=== PATIENT | female | born 1995 | race Caucasian/White ===

== ENCOUNTER 2022-10-19 08:10 | Emergency (ER) | payer MEDICARE, MEDICAID, SELFPAY ==
[2022-10-19 08:29] VITALS: BP 144/99; PULSE 96; RESP 18; TEMP 36.7; O2SAT 100
--- NOTE | 2022-10-19 08:57 | ED.URI ---
HPI - URI/Sore Throat General Chief Complaint: Upper Respiratory Infection Stated Complaint: Cough,Sore Throat Time Seen by Provider: 10/19/22 08:35 Source: patient, family (Mother) and RN notes reviewed Mode of arrival: ambulatory Limitations: no limitations History of Present Illness HPI Narrative: Patient presents today complaining of 4 day history of cough, rhinorrhea, congestion. Denies fever, shortness of breath, or any additional symptoms. Eating and drinking normally. Mother presents with similar symptoms. She has been taking Zyrtec with some relief. History of seasonal allergies, but states these symptoms are more severe. History of ear tubes x 12 and tympanic membrane reconstruction. Related Data Home Medications Medication Instructions Recorded Confirmed drospirenone (contraceptive) 4 mg 4 mg PO DAILY 10/19/22 10/19/22 (28) tablet (Slynd) folic acid 1 mg tablet 1 mg PO DAILY 10/19/22 10/19/22 lamotrigine 150 mg tablet 300 mg PO BID 10/19/22 10/19/22 omeprazole 40 mg capsule,delayed 40 mg PO DAILY 10/19/22 10/19/22 release Allergies Allergy/AdvReac Type Severity Reaction Status Date / Time Penicillins AdvReac Mild Hives Verified 10/19/22 08:39 Review of Systems Review of Systems: CONSTITUTIONAL: Denies body aches, fever, chills, or sweats. EYES: Denies visual changes, redness, or discharge. ENT: Denies sore throat, or otalgia.+ rhinorrhea, congestion CARDIOVASCULAR: Denies chest pain, palpitations, or edema. RESPIRATORY: Denies dyspnea.+ cough GASTROINTESTINAL: Denies abdominal pain, nausea, vomiting, or diarrhea. GENITOURINARY: Denies dysuria or hematuria. SKIN: Denies rash, itching, or wounds. MUSCULOSKELETAL: Denies back pain, joint pain, or myalgia. NEUROLOGIC: Denies headache, numbness, tingling, or weakness. PSYCH: Denies depression or anxiety. [facility] Surgical History Surgical History (Updated 10/19/22 @ 08:58 by Aretha Ceja, REBRANDER, ) History of placement of ear tubes Comments At time of signature, I have reviewed and agree with nursing past medical, surgical, social and family history unless otherwise noted. Please see nursing chart for further information. There is no relevant family history pertinent to the presenting complaint Exam Narrative: GENERAL: Mildly ill-appearing, well-nourished, and in no acute distress. HEAD: Normocephalic, atraumatic. EYES: EOMI. No redness or drainage. Conjunctivae normal. ENT: Mucous membranes pink and moist. Nares congested with rhinorrhea. TMs normal bilaterally. Throat normal. Uvula midline. NECK: Normal AROM. Supple. No lymphadenopathy. CHEST: No respiratory distress. Clear to auscultation. HEART: Regular rate and rhythm. No murmur appreciated. EXTREMITIES: Normal range of motion. No edema. SKIN: Warm, dry, no rash. Capillary refill normal. Normal skin turgor. NEURO: No focal deficits. Alert and oriented x3. Gait steady. PSYCH: Normal affect. No signs of depression or anxiety. Course Course Level of Care: Express Care Visit Vital Signs Vital signs: Vital Signs Temperature 98.0 F 10/19/22 08:29 Pulse Rate 96 10/19/22 08:29 Respiratory Rate 18 10/19/22 08:29 Blood Pressure 144/99 H 10/19/22 08:29 Pulse Oximetry 100 10/19/22 08:29 Oxygen Delivery Room Air 10/19/22 08:29 Temperature 98.0 F 10/19/22 08:29 Pulse Rate 96 10/19/22 08:29 Respiratory Rate 18 10/19/22 08:29 Blood Pressure 144/99 H 10/19/22 08:29 Pulse Oximetry 100 10/19/22 08:29 Oxygen Delivery Room Air 10/19/22 08:29 Reviewed. Pt has been instructed to follow up with her PCP regarding her elevated blood pressure today. MDM - URI/Sore Throat MDM Narrative Medical decision making narrative: Symptoms consistent with viral URI. No prescription medications indicated at this time. Anticipatory guidance given. Differential Diagnosis Differential diagnosis: Likely upper respiratory infection, sinusitis, viral infectio
== END 2022-10-19 09:02 | disposition home or self-care (01) ==
PROVIDERS: Emergency Provider Nurse Practitioner; PCP Family Medicine
DX: J06.9 Acute upper respiratory infection, unspecified (principal)
CPT/HCPCS: 99202; G0463

== ENCOUNTER 2022-11-04 08:01 | Emergency (ER) | payer MEDICARE, MEDICAID, SELFPAY ==
--- NOTE | 2022-11-04 08:18 | ED.URI ---
HPI - URI/Sore Throat General Chief Complaint: Upper Respiratory Infection Stated Complaint: congestion Time Seen by Provider: 11/04/22 08:24 Source: patient and RN notes reviewed Mode of arrival: ambulatory Limitations: no limitations History of Present Illness HPI Narrative: 27-year-old female with hx seizures and seasonal allergies presented for complaint of shortness of breath, onset yesterday. She states she was feeling short of breath while walking around at her job. Also reports nonproductive cough. Mother states the employer has not turned on the air conditioning. When she arrived home early from work she used the nebulizer machine, did chest percussion therapy and cool mist humidifier. Patient has been taking Zyrtec for several weeks. Mother states she thought she heard wheezing yesterday. Currently denies chest pain, palpitations, shortness of breath, nausea, vomiting, fevers or chills. MD elicited complaint: cough Related Data Home Medications Medication Instructions Recorded Confirmed drospirenone (contraceptive) 4 mg 4 mg PO DAILY 10/19/22 11/04/22 (28) tablet (Slynd) folic acid 1 mg tablet 1 mg PO DAILY 10/19/22 11/04/22 lamotrigine 150 mg tablet 300 mg PO BID 10/19/22 11/04/22 omeprazole 40 mg capsule,delayed 40 mg PO DAILY 10/19/22 11/04/22 release Allergies Allergy/AdvReac Type Severity Reaction Status Date / Time Penicillins AdvReac Mild Hives Verified 11/04/22 08:04 Review of Systems Review of Systems: CONSTITUTIONAL: Denies malaise, chills, sweats, fever EYES: Denies visual changes, redness, or discharge ENT: Reports rhinorrhea, congestion, denies sinus pain, otalgia, sore throat CARDIOVASCULAR: Denies chest pain, palpitations, edema RESPIRATORY: Reports cough, post nasal drainage. Denies dyspnea GASTROINTESTINAL: Denies abdominal pain, nausea, vomiting, diarrhea SKIN: Denies rash or itching MUSCULOSKELETAL: Denies myalgia NEUROLOGIC: Denies headache PMFSH Past Medical History Medical History Seizure Surgical History Surgical History History of placement of ear tubes Exam Narrative: GENERAL: well-appearing, nontoxic no acute distress. HEAD: Normocephalic EYES: PERRLA, conjunctivae clear ENT: Mucous membranes moist. TM pearly drew with scarring and normal light reflex bilaterally; no tragal tenderness. Oropharynx not erythematous NECK: Supple. No lymphadenopathy CHEST: Right lower lobe faint wheezing. No respiratory distress, speaks in full sentences. HEART: Slightly Tachycardic and regular rhythm. No murmur heard. SKIN: Warm, dry, no rash. NEURO: Alert and oriented x3. PSYCH: Normal mood and affect Course Course Emergency Course: Patient is aware of diagnosis, understands and agrees to treatment plan. Anticipatory guidance given. Patient agrees to follow-up as directed and is aware of reasons to seek care at the emergency department. Portions of this record may have been created with voice recognition software Level of Care: Express Care Visit Vital Signs Vital signs: reviewed MDM - URI/Sore Throat MDM Narrative Medical decision making narrative: Discussed physical exam findings. Rx steroid. Elevated bp rechecked, Advised close f/u with pcp, supportive measures and signs/symptoms to go to the ER. Pt is appropriate for outpt treatment and f/u. Differential Diagnosis Differential diagnosis: Likely upper respiratory infection, sinusitis, viral infection and bronchitis Discharge Plan Discharge Clinical Impression: Bronchitis Patient Disposition: Home, Self-Care Condition: Stable Instructions: Antibiotic Form, Acute Bronchitis (ED) Additional Instructions: Your blood pressure reading was elevated (above 120/80) please follow-up with your primary care provider for further evaluation and management. If you develop worsening Blood P
[2022-11-04 08:24] VITALS: BP 144/105; PULSE 105; RESP 16; TEMP 36.8; O2SAT 98
== END 2022-11-04 08:46 | disposition home or self-care (01) ==
PROVIDERS: Emergency Provider Nurse Practitioner Family; PCP Family Medicine
DX: J40 Bronchitis, not specified as acute or chronic (principal); G40.909 Epilepsy, unspecified, not intractable, without status epilepticus
CPT/HCPCS: 99213; G0463

== ENCOUNTER 2022-12-01 12:52 | Emergency (ER) | payer MEDICARE, MEDICAID, SELFPAY ==
[2022-12-01 13:08] VITALS: BP 145/107; PULSE 73; RESP 18; TEMP 37.1; O2SAT 100
--- NOTE | 2022-12-01 13:34 | ED.BACK ---
HPI - Back Pain/Injury General Chief Complaint: Back Pain/Injury Stated Complaint: . Source: patient Mode of arrival: ambulatory Limitations: no limitations History of Present Illness HPI Narrative: 27-year-old female presents to [facility] with complaints of pain to her left lower back for the past week. Patient reports that she did left heavy items at her job 1 week ago. Patient denies urinary symptoms. Patient denies fever, body aches, chills, nausea vomiting or diarrhea. Patient reports that the pain improves when she rests. Patient reports the pain worsens with movement or bending over. Patient has been taking [id number] Tylenol with minimal relief. MD elicited complaint: back pain Onset (ago): week(s) (1) Location: left lower back Radiation: none Exacerbating factors: movement Relieving factors: other (rest) Context: while lifting Associated symptoms: denies other symptoms Treatments prior to arrival: acetaminophen Related Data Home Medications Medication Instructions Recorded Confirmed drospirenone (contraceptive) 4 mg 4 mg PO DAILY 10/19/22 12/01/22 (28) tablet (Slynd) folic acid 1 mg tablet 1 mg PO DAILY 10/19/22 12/01/22 lamotrigine 150 mg tablet 300 mg PO BID 10/19/22 12/01/22 omeprazole 40 mg capsule,delayed 40 mg PO DAILY 10/19/22 12/01/22 release Allergies Allergy/AdvReac Type Severity Reaction Status Date / Time Penicillins AdvReac Mild Hives Verified 12/01/22 13:12 Review of Systems Constitutional: Constitutional: Denies chills, Denies fatigue, Denies fever(s) and Denies weakness ENT: Denies vertigo, Denies dizziness, Denies epistaxis and Denies nasal congestion Cardiovascular: Cardiovascular: Denies chest pain Respiratory: Respiratory: Denies chest congestion, Denies cough, Denies dyspnea and Denies wheezing Gastrointestinal: Gastrointestinal: Denies diarrhea, Denies nausea and Denies vomiting Musculoskeletal: Comments: Left lower back pain Integumentary/Breasts: Skin/Breast: Denies pruritus, Denies erythema and Denies rash Neurologic: Denies dizziness, Denies syncope and Denies headache(s) PMFSH Past Medical History Medical History Seizure Surgical History Surgical History History of placement of ear tubes Comments At time of signature, I agree with nursing past medical, surgical, social and family history. There is no relevant family history pertinent to the presenting complaint. Exam Const: Nutritional Appearance: well nourished Orientation/consciousness: patient oriented x3 Limitations: no limitations HENMT: Head: normal to inspection Eyes: Conjunctivae: conjunctivae normal Resp: Effort & Inspection: normal respiratory effort and not labored Auscultation: clear to auscultation bilaterally, no crackles, no rales, no rhonchi and no wheezes Cardio: Rate: regular rate Rhythm: regular rhythm Heart sounds: no murmurs GI: Inspection: non-distended : General: Yes bladder normal to palpation Back/Spine/Pelvis: Back: no CVA tenderness Other: Mild pain to left lower back upon palpation. There is no rash, swelling, erythema, bruising or open wounds noted. Normal range of motion to back noted Skin: General skin exam: normal color Rashes: no rashes Wounds: no wounds Neuro: General: patient oriented x3 Speech: normal speech Gait exam (Neuro): Normal gait present Extrem: General: normal to inspection Psych: Affect: normal affect Attitude: cooperative Course Course Level of Care: Express Care Visit Vital Signs Vital signs: Vital Signs Temperature 37.1 C 12/01/22 13:08 Pulse Rate 73 12/01/22 13:08 Respiratory Rate 18 12/01/22 13:08 Blood Pressure 145/107 H 12/01/22 13:08 Pulse Oximetry 100 12/01/22 13:08 Oxygen Delivery Room Air 12/01/22 13:08 Temperature 37.1 C 12/01/22 13:08 Pulse Rate 7
== END 2022-12-01 13:43 | disposition home or self-care (01) ==
PROVIDERS: Emergency Provider Nurse Practitioner Family; PCP Family Medicine
DX: M54.50 Low back pain, unspecified (principal); G40.909 Epilepsy, unspecified, not intractable, without status epilepticus
CPT/HCPCS: 81003; 99213; G0463

== ENCOUNTER 2025-02-28 09:23 | Emergency (ER) | payer MEDICARE, MEDICAID, SELFPAY ==
--- OUTSIDE RECORDS SUMMARY | 2015-03-21 09:45 | XMS_ITS | Continuity of Care Document ---
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 Name Role Phone Mejia CHANGE ROOM ATTENDANT, Aretha Unavailable Unavailable Allergies, Adverse Reactions, Alerts Substance Reaction Status Criticality Penicillins Active No Information Medications Medication Instructions Dosage Effective Dates (start - stop) Status Comments Lamictal 100 mg Tab by mouth 1 at 4pm and 1 at bedtime - Active folic acid 1 mg Tab take 1 tablet (1MG) by oral route every day as needed 1 MG - Active MULTIVITAMINS (unknown strength) take 1 tablet by oral route every day with food Not Available - Active Proventil HFA 90 mcg/actuation aerosol inhaler inhale 2 puff by inhalation route 15 mins prior to singing /excercise - No Longer Active Procedures Procedure Date PREV VISIT, EST, AGE 18-39 SPECIMEN HANDLING OFFICE/OUTPATIENT VISIT, EST URINALYSIS NONAUTO W/O SCOPE Nurse Only FLU VACCINE NO PRESERV 3 & > IMMUNIZATION ADMIN OFFICE/OUTPATIENT VISIT, EST PREV VISIT, EST, AGE 12-17 OFFICE/OUTPATIENT VISIT, EST OFFICE/OUTPATIENT VISIT, EST Nurse Only FLU VAC NO PRSV 4 LEILA 3 YRS+ IMMUNIZATION ADMIN IMMUNIZATION ADMIN, EACH ADD OFFICE/OUTPATIENT VISIT, EST STREP A ASSAY W/OPTIC OFFICE/OUTPATIENT VISIT, EST OFFICE/OUTPATIENT VISIT, EST URINALYSIS NONAUTO W/O SCOPE OFFICE/OUTPATIENT VISIT, EST OFFICE/OUTPATIENT VISIT, EST THER/PROPH/DIAG INJ, SC/IM FLU VACCINE NO PRESERV 3 & > DESTRUCT B9 LESION, -14 PREV VISIT, EST, AGE 12-17 HEP A VACC, PED/ADOL, 2 DOSE Nurse Only FLU VACCINE, 3 YRS & >, IM PREV VISIT, EST, AGE 12-17 HEP A VACC, PED/ADOL, 2 DOSE Nurse Only FLU VACCINE, 3 YRS & >, IM Advance Directives Directive Yes / No Effective Date File Name No Information Encounters Encounter Description Practice Location Reason(s) For Visit Diagnoses Date Provider Providers Copied on Encounter PREV VISIT, EST, AGE 18-39 [facility], [address] [place] [address], [id number], tel:[phone] [facility] 19 yr [facility] (chief complaint) ROUTIN CHILD HEALTH EXAM 5 Roberto Carias. [address] [place] [address], [id number] , [place]. tel:[phone] Referring Provider: Aretha Liu, [address] [place] [address], [id number] . tel:[phone] [facility], [address] [place] [address], [id number], tel:[phone] [facility] No Information 4 Nadira Christensen. [address] [place] [address], [id number]. tel:[phone] Referring Provider: Amparo Waddell, [address] [place] [address], [id number]. tel:[phone] OFFICE/OUTPA TIENT VISIT, EST [facility], [address] [place] [address], [id number], tel:[phone] [facility] possible uti (chief complaint) DysuriaDysmeno rrhea Nov-2 5 4 Nadira Christensen. [address] [place] [address], [id number]. tel:[phone] Referring Provider: Amparo Waddell, [address] [place] [address], [id number]. tel:[phone] [facility], [address] [place] [address], [id number], tel:[phone] [facility] immunization-p eds (chief complaint) No Information Mar- 4 Roberto Carias. [address] [place] [address], [id number] , [place]. tel:[phone] Referring Provider: Aretha Liu, [address] [place] [address], [id number] . tel:[phone] OFFICE/OUTPA TIENT VISIT, EST [facility], [address] [place] [address], [id number], tel:[phone] [facility] er/hospital follow-up (chief complaint) Urinary Tract Infection Silver-3 0-201 4 Anthony Olive. [address] [place] [address], [id number] , [place]. tel:[phone] PREV VISIT, EST, AGE 12-17 [facility], [address] [place] [address], [id number], [place] tel:[phone] [facility] Well child - 17 Years (chief complaint) Routine infant or child health checkEXERCISE INDUCED BRONCHOSPASM Apr-2 2-201 4 Anthony Olive. [address] [place] [address], [id number] , [place]. tel:[phone] OFFICE/OUTPA TIENT VISIT, [facility], [address] [place] [address], [id number], tel:[phone] [facility] back pain (chief complaint)coug h (chief complaint) Allergic rhinitis 3 Mejiaruben Calderonn. [address] [place] [address], [address] [place] [address] , [place]. tel:[phone] [facility], [address] [place] [address], [address] [place] [address], [place] tel:[phone] [facility] immunization-p eds (chief complaint) No Information 3 Sathya Reyna. [address] [place] [address], [facility], . tel:[phone] OFFICE/OUTPA TIENT VISIT, [facility], [address] [place] [address], [address] [place] [address], tel:[phone] [facility] sore throat (chief complaint) Streptococcal sore throat 2 3 Odukoya Bobbi. [address] [place] [address], [facility]. tel:[phone] Referring Provider: Bobbi Trimble, [address] [place] [address], [facility]. tel:[phone] OFFICE/OUTPA TIENT VISIT, [facility], [address] [place] [address], [address] [place] [address], tel:[phone] [facility] 2 week F/U constipation (chief complaint) DysuriaViral warts, unspecified 3 Odukoya Bobbi. [address] [place] [address], [facility]. tel:[phone] Referring Provider: Bobbi Trimble, [address] [place] [address], [facility]. tel:[phone] OFFICE/OUTPA TIENT VISIT, [facility], [address] [place] [address], [id number], tel:[phone] [facility] urinary problems (chief complaint) DysuriaUnspeci fied disorder of intestine Aug-0 3 Odukoya Bobbi. [address] [place] [address], [facility]. tel:[phone] Referring Provider: Bobbi Trimble, [address] [place] [address], [facility]. tel:[phone] OFFICE/OUTPA TIENT VISIT, EST [facility], [address] [place] [address], [id number], tel:[phone] [facility] recheck (R) wart/foot (chief complaint) Viral warts, unspecified 2 Odukoya Bobbi. [address] [place] [address], [facility]. tel:[phone] Referring Provider: Bobbi Trimble, [address] [place] [address], [facility]. tel:[phone] OFFICE/OUTPA TIENT VISIT, EST [facility], [address] [place] [address], [id number], tel:[phone] [facility] Knot on (R) foot (chief complaint) Viral warts, unspecifiedInf luenza Vaccine Feb- 2 Odukoya Bobbi. [address] [place] [address], [facility]. tel:[phone] Referring Provider: Bobbi Trimble, [address] [place] [address], [facility]. tel:[phone] PREV VISIT, EST, AGE 12-17 [facility], [address] [place] [address], [id number], [place] tel:[phone] [facility] Well child - 15 Years (chief complaint) Routine or child health checkUnspecifi ed mental retardationSei zuresOther specific developmental learning difficultiesPr oblems with hearing 2 Atilio Martines. [address] [place] [address], [facility]. tel:[phone] Referring Provider: Bobbi Trimble, [address] [place] [address], [facility]. tel:[phone] [facility], [address] [place] [address], [address] [place] [address], tel:[phone] [facility] No Information 2 Willem Mistry. [address] [place] [address], [address] [place] [address]. [phone] [facility], [address] [place] [address], [address] [place] [address], tel:[phone] [facility] immunizations (chief complaint) No Information 1 Sathya Reyna. [address] [place] [address], [facility], . [phone] Referring Provider: Maribell Jackson, [address] [place] [address], [facility]. tel:[phone] PREV VISIT, EST, AGE 12-17 [facility], [address] [place] [address], [address] [place] [address], tel:[phone] [facility] No Information 1 Prashant Malin . [address] [place] [address], [facility], . [phone] Referring Provider: Dea Cerda, [address] [place] [address], [facility]. tel:[phone] [facility], [address] [place] [address], [address] [place] [address], tel:[phone] [facility] No Information 0 Choe Gayle. [address] [place] [address], [facility], . tel:[phone] [facility], [address] [place] [address], [id number], tel:[phone] [facility] No Information 0 Willem Mistry. [address] [place] [address], [facility], . tel:[phone] Referring Provider: Fede Bangura, [address] [place] [address], [facility]. tel:[phone] Family History Family Member Type Diagnosis Age At Onset No Information Immunizations Vaccine Date Status Comments flu (split) preservative rohit e, 3 yrs or older administered Source: New Immuniza tion Record MCV4 (11-55 yrs) administered Source: New Immunization Record flu (split) preservative rohit e, 3 yrs or older administered Source: New Immuniza tion Record flu (split) preservative rohit e, 3 yrs or older administered Source: New Immuniza tion Record Hep A (ped/adol, 2 dose) administered Vidhya rce: New Immunization Record flu (split) preservative rohit e, 3 yrs or older administered Source: New Immuniza tion Record hep A (ped/adol, 2 dose) administered Vidhya rce: New Immunization Record flu (split) (3 yrs or older) preservative free administered Source: New Immuniza tion Record (H1N1) administered Source: New Imm unization Record varicella administered Source: New Imm unization Record flu (split) (3 yrs or older) preservative free administered Source: New Immuniza tion Record HPV (quadrivalent) administered Source: N ew Immunization Record flu (split) (3 yrs or older) preservative free administered Source: New Immuniza tion Record HPV (quadrivalent) administered Source: N ew Immunization Record Tdap administered Source: New Imm unization Record MCV4 administered Source: New Imm unization Record HPV (quadrivalent) administered Source: N ew Immunization Record flu (split) (3 yrs or older) preservative free administered Source: New Immuniza tion Record flu (split) (3 yrs or older) preservative free administered Source: New Immuniza tion Record flu (split) (3 yrs or older) preservative free administered Source: New Immuniza tion Record flu (split) (3 yrs or older) preservative free administered Source: New Immuniza tion Record varicella administered Source: New Imm unization Record OPV administered Source: New Imm unization Record MMR administered Source: New Imm unization Record DTaP administered Source: New Imm unization Record pneumo (under 5) (PCV7) administered Sour ce: New Immunization Record MMR administered Source: New Imm unization Record Hib (PRP-T) administered Source: New Imm unization Record DTaP administered Source: New Imm unization Record OPV administered Source: New Imm unization Record Hib (HbOC) administered Source: New Imm unization Record hep B (ped/adol, 3 dose) administered Vidhya rce: New Immunization Record DTP administered Source: New Imm unization Record OPV administered Source: New Imm unization Record Hib (HbOC) administered Source: New Imm unization Record DTP administered Source: New Imm unization Record OPV administered Source: New Imm unization Record DTP-Hib administered Source: New Imm unization Record hep B (ped/adol, 3 dose) administered Vidhya rce: New Immunization Record hep B (ped/adol, 3 dose) administered Vidhya rce: New Immunization Record Payers Payer name Insurance type Covered constitution party ID Authoriza tion(s) Medicaid [id number] Social History Type Description Quantity Date Captured Comments Alcohol Use Details No Caffeine Use Details soda Tobacco Use Status Never smoked tobacco 2014 Smoking Status Never smoker Non-Smoking Tobacco Use Details : No Details Available : No Details Available Sex Female Vital Signs Date / Time: Height Weight BMI Pulse Rate Blood Pressure Temperature Respiratory Rate Body Surface Area Head Circumference Head Circ. Percentile Wt./Ezio. Percentile BMI percentile Pulse Ox Inhaled Ox 2:46 PM 59.00 in 60.691 kg (133.80 lbs) 27.0 2 kg/m eter (2) 68 /min 118/66 mm[Hg] 98.70 F 16 /min 88 Chief Complaint And Reason For Visit From encounter dated '03/21/2015 14:45'. 19 yr [facility] (chief complaint) Reason For Referral Reason For Referral No Information Plan Of Treatment Date Type Action Status Referral Ordered: Referral: Podiatry. Consult. ordered History Of Present Illness Encounter Date Complaint History Of Prese nt Illness 19 yr [facility] Functional Status Date Functional Assessmen t No Information Instructions Date Instruction Additional Infor mation Healthy and well dev eloping. Return in about a month for flu vaccine. Return in 1 year for well child check, sooner for concerns or illnesses. Related to ROUTIN CHILD HEALTH EXAM Age appropriate anti cipatory guidance discussed Related to routine /child health checkup Age appropriate safety discussed Related to routine infant/child health checkup Age appropriate anti cipatory guidance discussed Related to routine /child health checkup Age appropriate diet discussed R elated to routine /child health checkup Age appropriate safety discussed Related to routine /child health checkup Assessments Type Assessment Date assessment ROUTIN CHILD HEALTH EXAM 2014 Mental Status Date Cognitive Assessment Orientation - [place] ed to time, place, person, situation. Patient Care Teams Name Effective Dates (start - stop) Status Members No Information
--- OUTSIDE RECORDS SUMMARY | 2015-03-21 09:45 | XMS_ITS | Continuity of Care Document ---
Author Organization [employer] [facility] Address [address] 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 19 yr [facility] (chief complaint) ROUTIN CHILD HEALTH EXAM 5 Roberto Carias. [address] [place] [address], [id number] , [place]. tel:[phone] Referring Provider: Aretha Liu, [address] [place] [address], [id number] . tel:[phone] [facility], [address] [place] [address], [id number], tel:[phone] [facility] No Information 4 Nadira Christensen. [address] [place] [address], [id number]. tel:[phone] Referring Provider: Amparo Waddell, [address] [place] [address], [id number]. tel:[phone] OFFICE/OUTPA TIENT VISIT, EST [facility], [address] [place] [address], [id number], tel:[phone] [facility] possible uti (chief complaint) DysuriaDysmeno rrhea Nov-2 5 4 Nadira Christensen. [address] [place] [address], [address]. tel:[phone] Referring Provider: Amparo Waddell, [address] [place] [address], [id number]. tel:[phone] [facility], [address] [place] [address], [id number], tel:[phone] [facility] immunization-p eds (chief complaint) No Information Mar- 4 Roberto Carias. [address] [place] [address], [id number] , [place]. tel:[phone] Referring Provider: Aretha Liu, [address] [place] [address], [id number] . tel:[phone] OFFICE/OUTPA TIENT VISIT, EST [facility], [address] [place] [address], [id number], tel:[phone] [facility] er/hospital follow-up (chief complaint) Urinary Tract Infection Silver-3 0-201 4 Anthony Olive. [address] [place] [address], [id number] , [place]. tel:[phone] PREV VISIT, EST, AGE 12-17 [facility], [address] [place] [address], [id number], [place] tel:[phone] [facility] Well child - 17 Years (chief complaint) Routine infant or child health checkEXERCISE INDUCED BRONCHOSPASM Apr-2 2-201 4 Anthony Olive. [address] [place] [address], [id number] , [place]. tel:[phone] OFFICE/OUTPA TIENT VISIT, [facility], [address] [place] [address], [id number], tel:[phone] [facility] back pain (chief complaint)coug h (chief complaint) Allergic rhinitis 3 Mejiaruben Calderonn. [address] [place] [address], [address] [place] [address] , [place]. tel:[phone] [facility], [address] [place] [address], [address] [place] [address], [place] tel:[phone] [facility] immunization-p eds (chief complaint) No Information 3 Sathya Reyna. [address] [place] [address], [facility], . tel:[phone] OFFICE/OUTPA TIENT VISIT, [facility], [address] [place] [address], [address] [place] [address], tel:[phone] [facility] sore throat (chief complaint) Streptococcal sore throat 2 3 Odukoya Bobbi. [address] [place] [address], [facility]. tel:[phone] Referring Provider: Bobbi Trimble, [address] [place] [address], [facility]. tel:[phone] OFFICE/OUTPA TIENT VISIT, [facility], [address] [place] [address], [address] [place] [address], tel:[phone] [facility] 2 week F/U constipation (chief complaint) DysuriaViral warts, unspecified 3 Odukoya Bobbi. [address] [place] [address], [facility]. tel:[phone] Referring Provider: Bobbi Trimble, [address] [place] [address], [facility]. tel:[phone] OFFICE/OUTPA TIENT VISIT, [facility], [address] [place] [address], [id number], tel:[phone] [facility] urinary problems (chief complaint) DysuriaUnspeci fied disorder of intestine Aug-0 3 Odukoya Bobbi. [address] [place] [address], [facility]. tel:[phone] Referring Provider: Bobbi Trimble, [address] [place] [address], [facility]. tel:[phone] OFFICE/OUTPA TIENT VISIT, EST [facility], [address] [place] [address], [id number], tel:[phone] [facility] recheck (R) wart/foot (chief complaint) Viral warts, unspecified 2 Odukoya Bobbi. [address] [place] [address], [facility]. tel:[phone] Referring Provider: Bobbi Trimble, [address] [place] [address], [facility]. tel:[phone] OFFICE/OUTPA TIENT VISIT, EST [facility], [address] [place] [address], [id number], tel:[phone] [facility] Knot on (R) foot (chief complaint) Viral warts, unspecifiedInf luenza Vaccine Feb- 2 Odukoya Bobbi. [address] [place] [address], [facility]. tel:[phone] Referring Provider: Bobbi Trimble, [address] [place] [address], [facility]. tel:[phone] PREV VISIT, EST, AGE 12-17 [facility], [address] [place] [address], [id number], [place] tel:[phone] [facility] Well child - 15 Years (chief complaint) Routine or child health checkUnspecifi ed mental retardationSei zuresOther specific developmental learning difficultiesPr oblems with hearing 2 Atilio Martines. [address] [place] [address], [facility]. tel:[phone] Referring Provider: Bobbi Trimble, [address] [place] [address], [facility]. tel:[phone] [facility], [address] [place] [address], [address] [place] [address], tel:[phone] [facility] No Information 2 Willem Mistry. [address] [place] [address], [address] [place] [address]. [phone] [facility], [address] [place] [address], [address] [place] [address], tel:[phone] [facility] immunizations (chief complaint) No Information 1 Sathya Reyna. [address] [place] [address], [facility], . [phone] Referring Provider: Maribell Jackson, [address] [place] [address], [facility]. tel:[phone] PREV VISIT, EST, AGE 12-17 [facility], [address] [place] [address], [address] [place] [address], tel:[phone] [facility] No Information 1 Prashant Malin . [address] [place] [address], [facility], . [phone] Referring Provider: Dea Cerda, [address] [place] [address], [facility]. tel:[phone] [facility], [address] [place] [address], [address] [place] [address], tel:[phone] [facility] No Information 0 Choe Gayle. [address] [place] [address], [facility], . tel:[phone] [facility], [address] [place] [address], [id number], tel:[phone] [facility] No Information 0 Willem Mistry. [address] [place] [address], [facility], . tel:[phone] Referring Provider: Fede Bangura, [address] [place] [address], [facility]. tel:[phone] Family History Family Member Type Diagnosis Age [...] Record Payers Payer name Insurance type Covered republican ID Authoriza tion(s) Medicaid [id number] Social History Type Description Quantity Date Captured [...] From encounter dated '03/21/2015 14:45'. 19 yr [facility] (chief complaint) Reason For Referral Reason For Referral No Information Plan Of Treatment Date Type Action Status Referral Ordered: Referral: Podiatry. Consult. ordered History Of Present Illness Encounter Date Complaint History Of Prese nt Illness 19 yr [facility] Functional Status Date Functional Assessmen t No [...] to routine infant/child health checkup Age appropriate diet discussed R elated to routine /child health checkup Age appropriate anti cipatory guidance discussed Related to routine /child health checkup Age appropriate safety discussed Related to routine /child health checkup Assessments Type Assessment Date assessment ROUTIN CHILD HEALTH EXAM 2014 Mental Status Date Cognitive Assessment Orientation - [place] ed to time, place, person, situation. Patient Care Teams Name Effective Dates (start - stop) Status Members No Information
--- OUTSIDE RECORDS SUMMARY | 2025-02-28 09:36 | XMS_ITS | Clinical Summary ---
Author Organization [facility] [address] [place] [address] Care Team Providers Care Manager Forms Name Role Phone Kirby Villegas MD Primary Care Provider [phone]- [phone] Allergies Active Allergy Reactions Criticality Noted Date Comments Penicillins Hives,Unknown Medium 06/19/2015 Medications lamoTRIgine (LaMICtal) 150 mg tablet Take 150 mg by mouth 2 (two) times a day. Active folic acid 20 mg capsule Take by mouth. Acti ve multivitamin capsule Take 1 capsule by mouth daily. Active naproxen (NAPROSYN) 500 mg tablet TAKE 1 TABLET BY MOUTH TWICE A DAY NEEDED 9 Active omeprazole (PriLOSEC) 40 mg capsule 1 CAPSULE 30 MINUTES BEFORE MORNING MEAL ONCE A DAY ORALLY 30 DAY(S) 0 Active semaglutide (WEGOVY) 0.25 mg/0.5 mL auto-injector Inject 0.5 mL (0.25 mg total) under the skin once a week 4 Active norethindrone (MICRONOR) 0.35 mg tablet 4 Active losartan (COZAAR) 25 mg tablet Take 1 tablet (25 mg total) by mouth daily 4 Active PreviDent 5000 Plus 1.1 % cream APPLY A SMALL SMEAR OF TOOTHPASTE TO TOOTHBRUSH DAILY X 2 MINUTES AND RINSE AFTER USE 4 Active drospirenone, contraceptive, (Slynd) tablet tablet Take 1 each (4 mg total) by mouth daily 3 Active Active Problems No known active problems Surgical History Surgery Date Site/Laterality Comments TYMPANOSTOMY TUBE PLACEMENT Eight sets of tubes Medical History Medical History Date Comments Seizures (HCC) Social History Tobacco Use Types Packs/Day Years Used Date Smoking Tobacco: Never Smokeless Tobacco: Never Comments No Sex and Gender Information Value Date Recorded Sex Assigned at Not on file Legal Sex Female 1:16 PM WASH RACK OPERATOR Gender Identity Not on file Sexual Orientation Not on file Obstetrics History Last Filed Vital Signs Vital Sign Reading Time Taken Comments Blood Pressure 121/85 05/06/2024 9:24 AM WASH RACK OPERATOR Pulse 100 05/06/2024 9:24 AM WASH RACK OPERATOR Temperature 36.9 C (98.4 F) 05/06/2024 9:24 AM WASH RACK OPERATOR Respiratory Rate 20 05/06/2024 9:24 AM WASH RACK OPERATOR Oxygen Saturation 100% 05/06/2024 9:24 AM WASH RACK OPERATOR Inhaled Oxygen Concentration - - Weight 86.4 kg (190 lb 6.4 oz) 05/06/2024 9:24 A M WASH RACK OPERATOR Height 165.1 cm (5' 5) 05/06/2024 9:24 AM WASH RACK OPERATOR Body Mass Index 31.68 05/06/2024 9:24 AM WASH RACK OPERATOR Plan of Treatment Health Maintenance Due Date Last Done Comments Cervical Cancer Screening 1996 Hepatitis C Screening 1996 Regular Well Visit/Exam 18-64 2014 DTaP/Tdap/Td Vaccine (7 - Td or Tdap) 02/01/2018 02/02/2008, 06/16/2001, 09/27/1997, Additional history exists Depression Screening 12/28/2018 12/28/2017, 12/28/2017, 10/24/2017, Additional history exists Covid-19 Vaccine (4 2023-2 5 season) 2024 04/03/2021, 09/15/2020, 08/25/2020 Influenza Vaccine (#1) 2025 , 02/23/2021, 03/19/2020, Additional history exists Hepatitis B Screening Completed 1996 , 1996, 1996 Pneumococcal vaccine <65 Completed 11/06/1999 HPV Vaccines Completed 08/22/2008, 03/29, 02/02/2008 Varicella Vaccines Completed 04/10/2009, 1 08/17/2000, 06/16/2001, Additional history exists Insurance [facility] MEDICARE [facility] [employer] CHOICE MEDICARE PPO Care Teams Manager Forms Relationship Specialty [place] [address] [place] [address] PCP - General Family Practice 07/11/20
--- OUTSIDE RECORDS SUMMARY | 2025-02-28 09:36 | XMS_ITS | Clinical Summary ---
Author Organization [facility] [employer] Address [address] [place] [address] Care Team Providers Care Chucking Lathe Operator Name Role Phone Kirby Villegas MD Primary Care Provider [phone]- [phone] [facility] [employer],non-owned Affiliates and Associated Physician Practices is amultiple site organization consisting of ambulatory clinics and hospital sitesin [place], [place], [place] and [place]. This disclosure is being madepursuant to the Care Everywhere program and may not contain all information available regarding this patient. Last updated 18.[facility] [employer] Allergies Active Allergy Reactions Criticality Noted Date Comments Penicillins Urticaria,Unknown Medium 07/28/2013 Medications * Be aware that medications may not be up to date on this document. Alwaysverify current medications with the patient. lamoTRIgine (LAMICTAL) 150 MG tablet Take 1 (one) tablet by mouth 2 times daily 2 tabs BID Active folic acid (FOLVITE) 1 MG tablet Take 1 (one) tablet by mouth once daily Active multivitamin daily (THERAGRAN) tablet Take 1 (one) tablet by mouth daily with food Active losartan (Cozaar) 25 MG tablet Take 1 (one) tablet by mouth once daily 4 Active multivitamins (One A Day) capsule Take 1 (one) capsule by mouth once daily Active Multiple Vitamins-Minera ls (Multi Vitamin/Mineral s) TABS Take 1 (one) tablet by mouth before evening meal Active cetirizine (ZyrTEC) 10 MG tablet Take 1 (one) tablet by mouth once daily Active cyclobenzaprine (Flexeril) 10 MG tablet Take 0.5 (one-half) tablet by mouth 3 times daily as needed for Muscle Spasms 90 tablet 5 Active Additional Information Patient not taking.Reported on 11/08/2024 norethindrone 0.35 MG tablet 4 Active Active Problems Problem Noted Date Diagnosed Date Seizures 05/04/2017 Encounters Date Type Department Care Team Description 02/28/[address] [facility] [address] [place] [phone] [place] Minal Woodall RN Lumbar radiculopathy 01/23/2025 8:30 AM CDT Office Visit [facility] [address] [place] [id number] Rosalind Alas, MARY-ALLIANCES CONSULTANT Lumbar radiculopathy (Primary Dx) 01/23/2025 Travel 12/19/2024 Travel 12/05/2024 Travel from Last 3 Months Social History Tobacco Use Types Packs/Day Years Used Date Smoking Tobacco: Never Smokeless Tobacco: Never Tobacco Cessation:Counseling Given: No Alcohol Use Standard Drinks/Week Comments No 0 (1 standard drink = 0.6 oz pur e alcohol) Comments No Sex and Gender Information Value Date Recorded Sex Assigned at Not on file Legal Sex Female 1:26 PM CDT Gender Identity Not on file Sexual Orientation Not on file Last Filed Vital Signs Vital Sign Reading Time Taken Comments Blood Pressure 124/85 01/23/2025 8:22 AM CDT Pulse 73 01/23/2025 8:22 AM CDT Temperature 36.9 C (98.4 F) 11/08/2024 10:02 AM CDT Respiratory Rate 16 10/27/2024 10:51 AM CDT Oxygen Saturation 97% 11/08/2024 10:02 AM CDT Inhaled Oxygen Concentration - - Weight 89.8 kg (198 lb) 11/08/2024 10:02 AM CDT Height 149.9 cm (4' 11) 11/08/2024 10:02 AM CDT Body Mass Index 39.99 11/08/2024 10:02 AM CDT Plan of Treatment Health Maintenance Due Date Last Done Comments HIV SCREENING 2011 HEPATITIS C SCREENING 06/09/2014 DTAP/TDAP/TD VACCINES (1 - Tdap) 2015 HEPATITIS B VACCINE (1 of 3 - 19+ 3-dose series) 2015 HPV VACCINE (1 - 3-dose SCDM series) 2023 DEPRESSION SCREENING 06/29/2024 MEDICARE AWV CALENDAR YEAR 2024 COVID-19 VACCINE (4 - 2024- season) 2025 04/03/2021, 09/15/2020, 08/25/2020 INFLUENZA VACCINE (#1) 2025 , 02/27/2022, 02/23/2021, Additional history exists PAP SMEAR 06/30/2026 06/30/2023 ZOSTER VACCINE (1 of 2) 2046 HIB VACCINE Aged Out No longer eligi ble based on patient's age to complete this topic MENINGOCOCCAL (Group B) VACCINE SHARED DECISION-MAKING Aged Out No longer eligible based on patient's age to complete this topic MENINGOCOCCAL GROUPS A/C/Y/W VACCINE Aged Out No longer eligible based on patient's age to complete this topic PNEUMOCOCCAL VACCINE Aged Out No long er eligible based on patient's age to complete this [place] [address] [place] [address] MEDICARE MEDICAID - [place] [address] [place] [address] [place] [address] MEDICARE HU[employer]NA MEDICARE ADV HMO & PPO Advance Directives * Full Code (Latest Code Status on File) Date Activated Date Inactivated Comments 05/04/2017 3:39 PM 05/10/2017 3:59 PM Care Teams Chucking Lathe Operator Relationship Specialty [place] [address] [place] [address] PCP - General Family Medicine 08/30/24
--- OUTSIDE RECORDS SUMMARY | 2025-02-28 09:36 | XMS_ITS | Encounter Summary ---
Author Organization [facility] Address [address] [place] [address] Phone Care Team Providers Care Medical Researcher Name Role Phone Kirby Villegas MD Primary Care Provider Tucker Franklin MD Unavailable Shasha Quintero APRN, DELIVERY REP Unavailable [phone]- [phone] Reason for Visit * Reason Comments Medication Refill Encounter Details Date Type Department Care Team (Late st Contact Info) Description 04/17/2020 Refill [facility] - Neurology - [place] [address] [facility] [place] [address] Tucker Franklin MD [address] [place] [address] Medication Refill Social History Tobacco Use Types Packs/Day Years Used Date Smoking Tobacco: Never Smokeless Tobacco: Never Alcohol Use Standard Drinks/Week Comments No 0 (1 standard drink = 0.6 oz pur e alcohol) Comments No Sex and Gender Information Value Date Recorded Sex Assigned at Not on file Legal Sex Female 11:54 AM CDT Gender Identity Not on file Sexual Orientation Not on file COVID-19 Exposure Response Date Recorded In the last month, have you been in contact with someone who was confirmed or suspected to have Coronavirus / COVID-19? 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) documented in this encounter Additional Health Concerns Infection Onset Date Last Indicated Resolved Time COVID - 19 03/21/2021 03/21/2021 04/10/2021 12:1 6 AM CDT COVID - 19 Confirmed 03/21/2021 03/21/2021 021 12:16 AM CDT COVID - 19 03/08/2022 03/08/2022 03/18/2022 12:1 6 AM CDT documented as of this encounter Care Teams Medical Researcher Relationship Specialty [place] [address] [place] [address] PCP - General Family Medicine 05/31/18 Tucker Franklin MD [address] [place] [address] Consulting Physician Neurology 09/02/22 Shasha Quintero APRN, DELIVERY REP [address] [place] [address] Nurse Practitioner Advanced Practice Nurse 11/17/24 documented as of this encounter
--- OUTSIDE RECORDS SUMMARY | 2025-02-28 09:36 | XMS_ITS | Encounter Summary ---
Author Organization [facility] Address [address] [place] [address] Phone Care Team Providers Care Plate Straightener Name Role Phone Kirby Villegas MD Primary Care Provider Tucker Franklin MD Unavailable Shasha Quintero APRN, INDUSTRY ANALYST Unavailable [phone]- [phone] Reason for Visit * Reason Comments Medication Refill Encounter Details Date Type Department Care Team (Late Contact Info) Description 10/02/2020 Refill [facility] - Neurology - [place] [address] [facility] [address] Tucker Franklin MD [address] [place] [address] Medication Refill Social History Tobacco [...] have Coronavirus / COVID-19? No / Unsure 09/12/2020 10:35 AM CDT documented as of this encounter Plan of Treatment Upcoming Encounters Date Type Department Care Team (Late st Contact Info) Description 05/18/2025 10:30 AM MANAGER OF INTERNATIONAL Office Visit [facility] - Neurology [facility] [address] [place] [address] Shsaha Quintero APRN, INDUSTRY ANALYST [address] [place] [address] documented as of this encounter Visit Diagnoses Not on filedocumented in this encounter Additional Health Concerns Infection Onset Date Last Indicated Resolved Time COVID - 19 03/21/2021 03/21/2021 04/10/2021 12:1 6 AM CDT COVID - 19 Confirmed 03/21/2021 03/21/2021 021 12:16 AM CDT COVID - 19 03/08/2022 03/08/2022 03/18/2022 12:1 6 AM CDT documented as of this encounter Care Teams Plate Straightener Relationship Specialty Start [place] [address] [place] [address] PCP - General Family Medicine 05/31/18 Tucker Franklin MD [address] [place] [address] Consulting Physician Neurology 09/02/22 Shasha Quintero APRN, INDUSTRY ANALYST [address] [place] [address] Nurse Practitioner Advanced Practice Nurse 11/17/24 documented as of this encounter
--- OUTSIDE RECORDS SUMMARY | 2025-02-28 09:36 | XMS_ITS | Encounter Summary ---
Author Organization [facility] Address [address] [place] [address] Phone Care Team Providers Care Senior Specialist Name Role Phone Kirby Villegas MD Primary Care Provider Tucker Franklin MD Unavailable [phone] Shasha Quintero APRN, PLATE DRYING MACHINE TENDER Unavailable [phone] Reason for Visit * Reason Comments Medication Refill Encounter Details Date Type Department Care Team (Late Contact Info) Description 01/16[facility] [address] [place] [address] Tucker Franklin MD [address] [place] [phone] Medication Refill Social History Tobacco Use Types [...] on file Sexual Orientation Not on file documented as of this encounter Plan of Treatment Upcoming Encounters Date Type Department Care Team (Late Contact Info) Description 05/18/2025 10:30 AM BUSINESS CONTINUITY PLANNING DIRECTOR Office Visit [facility] [address] [place] [phone] Shasha Quintero APRN, PLATE DRYING MACHINE TENDER [address] [place] [address] documented as of this encounter Visit Diagnoses Not on filedocumented in this encounter Additional Health Concerns Infection Onset Date Last Indicated Resolved Time COVID - 19 03/21/2021 03/21/2021 04/10/2021 12:1 6 AM CDT COVID - 19 Confirmed 03/21/2021 03/21/2021 021 12:16 AM CDT COVID - 19 03/08/2022 03/08/2022 03/18/2022 12:1 6 AM CDT documented as of this encounter Care Teams Senior Specialist Relationship Specialty [place] [address] [place] [address] PCP - General Family Medicine 05/31/18 Tucker Franklin MD [address] [place] [address] Consulting Physician Neurology 09/02/22 Shasha Quintero APRN, PLATE DRYING MACHINE TENDER [address] [place] [address] Nurse Practitioner Advanced Practice Nurse 11/17/24 documented as of this encounter
--- OUTSIDE RECORDS SUMMARY | 2025-02-28 09:36 | XMS_ITS | Clinical Summary ---
Author Organization [facility] Address [address] [place] [address] Care Team Providers Care Cogeneration Operator Name Role Phone Kirby Villegas MD Primary Care Provider [phone] Allergies Active Allergy Reactions Criticality Noted Date Comments Penicillins Hives,Unknown Medium 06/19/2015 Medications folic acid 1 MG tablet TAKE 1 TABLET EVERY DAY 5 Active multi vitamin/minerals (THERA-M ENHANCED) tablet Take 1 tablet by mouth. Active SLYND 4 MG Tab Take 1 tablet by mouth daily. 3 Active lamoTRIgine (LAMICTAL) 150 MG tablet Take 2 tablets (300 mg total) by mouth 2 (two) times daily. 3 Active semaglutide-weigh t management (WEGOVY) 0.25 mg/dose injection (PEN)Indications: Class 2 severe obesity due to excess calories with serious comorbidity and body mass index (BMI) of 38.0 to 38.9 in adult (CMS/HCC) Inject 0.25 mg into the skin once a week. X 4 weeks. Then follow up in office with Dr Villegas. If doing ok, will increase dose to 0.5mg once per week. 2 mL 4 Active Norethindrone, Contraceptive, 0.35 MG tablet 4 Active ALPRAZolam (XANAX) 0.5 MG tabletIndications :Anxiety about visiting dentist Take 1 tablet by mouth 1 hour prior to dentist apt. Can repeat dose right before apt if needed. 2 tablet 5 Active omeprazole (PRILOSEC) 40 MG capsuleIndication s:Gastroesophagea l reflux disease without esophagitis TAKE 1 CAPSULE EVERY DAY 90 capsule 3 5 Active losartan (COZAAR) 25 MG tabletIndications :Essential hypertension TAKE 1 TABLET EVERY DAY 90 tablet 3 5 Active Active Problems Problem Noted Date Diagnosed Date Gastroesophageal reflux disease without esophagi tis 01/23/2023 Muscle cramping 01/23/2023 Right leg pain 01/23/2023 Essential hypertension 11/07/2022 Disorder of intestine 09/22/2022 Dysmenorrhea 09/22/2022 Dysuria 09/22/2022 Exercise-induced bronchospasm ([facility]) 09/23/19 Intellectual disability 09/22/2022 Other specific developmental learning difficulti es 09/22/2022 Streptococcal sore throat 09/22/2022 Viral warts 09/22/2022 Pelvic and perineal pain 03/22/2019 Overview (02/09/2023): Pelvic and perineal pain;Recorded Elsewhere: No Location: [facility] Source: EHR Chronic: N Practice ID: [id number] Billable Time: 01:00:00 PM Cellulitis of left upper extremity 08/17/2018 Strain of ankle, right 01/29/2018 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[facility]) Allergic rhinitis 11/11/2016 Scoliosis 10/01/2016 Thoracic back pain 10/01/2016 Obesity (BMI 30-39.9) 03/10/2016 test negative 10/09/2015 Overview (02/09/2023): Encounter for test, result negative;Recorded Elsewhere: No Location: [facility] Source: EHR Chronic: N Practice ID: [id number] Billable Time: 11:15:00 AM Constipation, unspecified constipation type 06/29 Developmental disability 06/19/2015 Hearing impairment 06/19/2015 High risk medication use 06/19/2015 Seizures ([facility]) 06/19/2015 Overview (12/29/2018): Annotation - [id number]: managed by Dr. Kailash Zavala Sinusitis, bacterial 04/26/2015 Developmental academic disorder 08/12/2011 Problems with hearing 08/12/2011 Immunizations Immunization Administration Dates Next Due Afluria 36 MONTHS+ (Prefille d Syringe IIV4) 02/21/2019 Dtap (Generic) 06/16/2001,09/27/1997 Dtp (Generic) 1996,1996 Dtp/Hib 1996 Fluzone 6 Months+ Quad (0.5 mL Prefilled Syringe) 03/19/2020 H1N1 Injectable 2009 Influenza 04/26/2009 HPV 08/22/2008,04/07/2008,02/02/2008 Hepatitis A Vaccine - 2 Dose 08/12/2011,07/12/19 11 Hepatitis B Pediatric 1996,1996,05/29 Hib Vaccine, Hboc 1996,1996 Hib Vaccine, Prp-T 09/27/1997 Influenza (Generic) 02/17/2017, 6,04/18/2014,04/20,03/25/2012,03/17/2011,04/23/2010 ,04/10/2009,04/07/2008,04/13/2007,03/30,04/16/2004,04/11/2003 Influenza Adult (Generic) 03/04/2023,06/2021,02/23/2021,02/21,02/17/2017,03/01/2016,02/29/2016 MMR (Generic) 06/16/2001,09/27/1997 Meningococcal Vac A,C,Y,W-135 Sc 04/20/2013,080 11/2007 Opv 06/16/2001, 7,1996,08/16 PFIZER COVID-19 (ORIGINAL FO RMULATION, PURPLE CAP) mRNA, LNP-S, PF, 30 MCG/0.3 ML DOSE 04/03/2021,09/15/2020,08/25/2020 Pneumococcal (Prevnar 7) 11/06/1999 Tdap (Generic) 02/02/2008 Varicella Vaccine 04/10/2009,06/16/2001 Family History * Patient is adopted Relation Status Comments Father Other Mother Other Social History Tobacco Use Types Packs/Day Years Used Date Smoking Tobacco: Never Smokeless Tobacco: Never Tobacco Cessation:Counseling Given: No Alcohol Use Standard Drinks/Week Comments Yes 0 (1 standard drink = 0.6 oz pur e alcohol) rarely AUDIT-C Answer Date Recorded Frequency of Alcohol Consumption Never 12/29/2018 Average Number of Drinks Not on file 019 Frequency of Binge Drinking Not on file 08/2018 PHQ-2 Answer Date Recorded Patient Health Questionnaire-2 Score 0 11/07/2022 Comments No Sex and Gender Information Value Date Recorded Sex Assigned at Not on file Legal Sex Female 9:19 PM CDT Gender Identity Not on file Sexual Orientation Not on file Last Filed Vital Signs Vital Sign Reading Time Taken Comments Blood Pressure 114/72 07/08/2024 11:31 AM VEHICLE DISMANTLER Pulse 90 07/08/2024 11:31 AM VEHICLE DISMANTLER Temperature 36.7 C (98.1 F) 07/08/2024 11:31 AM VEHICLE DISMANTLER Respiratory Rate 16 07/08/2024 11:31 AM VEHICLE DISMANTLER Oxygen Saturation 98% 07/08/2024 11:31 AM VEHICLE DISMANTLER Inhaled Oxygen Concentration - - Weight 88.5 kg (195 lb) 07/08/2024 11:31 AM VEHICLE DISMANTLER Height 149.9 cm (4' 11) 07/08/2024 11:31 AM VEHICLE DISMANTLER Body Mass Index 39.39 07/08/2024 11:31 AM VEHICLE DISMANTLER Plan of Treatment Health Maintenance Due Date Last Done Comments Annual Physical 1999 DTaP, Tdap and Td Vaccines (6 - Td or Tdap) 02/01/2018 02/02/2008, 06/16/2001, 09/27/1997, Additional history exists PHQ-2 (Physician [place]) 06/29/2024 COVID-19 Vaccine ( season) 2025 06/03/2023, 04/03/2021, 09/15/2020, Additional history exists Cervical Cancer Screening Pap Smear (Age 21 to 29) Every 3 Years 06/30/2026 06/30/2023 Cervical Cancer Screening 06/30/2026 Hepatitis C 11/07/2052 Postponed from 2014 (Patient Refused) Hepatitis B Vaccines Completed 1996, 1996, 1996 Pneumococcal Vaccine: Pediatrics (0 to 5 Years) and At-Risk Patients (6 to 49 Years) Aged Out 11/06/1999 No longer eligible based on patient's age to complete this topic HPV Vaccines Completed 08/22/2008, 03/29, 02/02/2008 Meningococcal Vaccine Aged Out 04/20/2013, 008 No longer eligible based on patient's age to complete this topic Meningococcal B Vaccine Aged Out No l onger eligible based on patient's age to complete this topic RSV Immunizations Under 20 Months Aged Out No longer eligible based on patient's age to complete this topic Insurance MEDICAID [place] Advance Directives Documents on File Type Date Recorded Patient Clay Preparation Supervisor Expl anation Legal Documents 12/29/2018 Guardianship paperwork Care Teams Cogeneration Operator Relationship Specialty [place] [address] [facility] [address] PCP - General FAMILY PRACTICE 12/28/18
--- OUTSIDE RECORDS SUMMARY | 2025-02-28 09:36 | XMS_ITS | Encounter Summary ---
Author Organization [facility] Address [address] [place] [address] Care Team Providers Care Receipt And Report Clerk Name Role Phone Kirby Villegas MD Primary Care Provider [phone] Encounter Details Date Type Department Care Team (Late st Contact Info) Description 09/08/2023 [employer] Message Enc [facility] Family & Internal Medicine [facility] [address] [place] [address] [place] [address] [place] [address] Weight loss medication for Tiffany Social History Tobacco Use Types Packs/Day Years Used Date Smoking Tobacco: Never Smokeless Tobacco: Never Alcohol Use Standard Drinks/Week Comments Yes 0 [...] as of this encounter Plan of Treatment Not on file documented as of this encounter Visit Diagnoses Not on filedocumented in this encounter Care Teams Receipt And Report Clerk Relationship Specialty [place] [address] [place] [address] PCP - General FAMILY PRACTICE 12/28/18 documented as of this encounter
--- OUTSIDE RECORDS SUMMARY | 2025-02-28 09:36 | XMS_ITS | Encounter Summary ---
Author Organization [facility] Address [address] [place] [address] Care Team Providers Care Belt Press Operator Name Role Phone Kirby Villegas MD Primary Care Provider [phone]- [phone] Encounter Details Date Type Department Care Team (Latest Contact Info) Description 09/10/2023 [employer] Message Enc [facility] Family & Internal Medicine [facility] [address] [place] [address] [place] [address] [place] [address] Prior Authorization for weight loss medicine for Tiffany Ramirez Social History Tobacco Use Types Packs/Day Years [...] on filedocumented in this encounter Care Teams Belt Press Operator Relationship Specialty Start [place] [address] [place] [address] PCP - General FAMILY PRACTICE 12/28/18 documented as of this encounter
--- OUTSIDE RECORDS SUMMARY | 2025-02-28 09:36 | XMS_ITS | Encounter Summary ---
Author Organization [facility] Address [address] [place] [address] Care Team Providers Care Service Desk Agent Name Role Phone Kirby Villegas MD Primary Care Provider [phone] Reason for Referral * Consultation (Routine) - Open Specialty Diagnoses / Procedures Referred By Contpavan t Referred To Contact Diagnoses Lumbar radiculopathy Alex Coffey MD [address] [place] [address] Phone: tel: fax: Referral ID Status Reason Start Date Expiration Date V isits Requested Visits Authorized [id number] Open Specialty Services Required 02/28/2025 02/28/2026 1 1 Scheduling Instructions Right L-4 and L5 transforaminal epidural steroid injection with fluoroscopy guidance and local anesthesia Xanax Encounter Details Date Type Department Care Team (Late st Contact Info) Description 02/28/2025 Orders Only [facility] [address] [place] [phone] Minal Baeza RN Lumbar radiculopathy Social History Tobacco Use Types Packs/Day Years [...] on file documented as of this encounter Functional Status * Is person deaf or have serious hearing difficulty? Answer Date of Assessment Author No 05/04/2017 9:46 AM Chelsea Cannon RN * Is person blind or have serious difficulty seeing? Answer Date of Assessment Author No 05/04/2017 9:46 AM Chelsea Cannon RN * Does person have serious difficulty walking/climbing stairs? Answer Date of Assessment Author No 05/04/2017 9:46 AM Chelsea Cannon RN * Does person have difficulty dressing/bathing? Answer Date of Assessment Author No 05/04/2017 9:46 AM Chelsea Cannon RN * Does person have difficulty doing errands alone? Answer Date of Assessment Author No 05/04/2017 9:46 AM Chelsea Cannon RN documented as of this encounter Mental Status * Does person have difficulty concentrating/remembering/making decisions? Answer Entry Date Author No 05/04/2017 9:46 AM Chelsea Cannon RN documented in this encounter Plan of Treatment Scheduled Referrals Name Type Priority Associated Diagnoses Orde r Schedule AMB REFERRAL TO PAIN MANAGEMENT PROCEDURE Outpatient Referral Routine Lumbar radiculopathy 1 Occurrences starting 02/28/2025 until 02/28/2026 documented as of this encounter Visit Diagnoses Diagnosis Lumbar radiculopathy- Primary Thoracic or lumbosacral neuritis or radiculitis, unspecified documented in this encounter Care Teams Service Desk Agent Relationship Specialty [place] [address] [place] [address] PCP - General Family Medicine 08/30/24 documented as of this encounter
--- OUTSIDE RECORDS SUMMARY | 2025-02-28 09:36 | XMS_ITS | Encounter Summary ---
Author Organization [facility] Address [address] [place] [address] Care Team Providers Care Shipping Support Name Role Phone Kirby Villegas MD Primary Care Provider [phone] Encounter Details Date Type Department Care Team (Late st Contact Info) Description 08/24/2023 [employer] Message Enc [facility] Family & Internal Medicine [facility] [address] [place] [address] Home, [facility] Provider Due for routine follow up appt Social History Tobacco Use Types Packs/Day Years [...] on filedocumented in this encounter Care Teams Shipping Support Relationship Specialty [place] [address] [place] [address] PCP - General FAMILY PRACTICE 12/28/18 documented as of this encounter
--- OUTSIDE RECORDS SUMMARY | 2025-02-28 09:36 | XMS_ITS | Clinical Summary ---
Author Organization [facility] Address [address] [place] [address] Phone Care Team Providers Care Spring Coiling Machine Setter Name Role Phone Kirby Villegas MD Primary Care Provider [phone] Tucker Franklin MD Unavailable Shasha Quintero APRN, [address] Unavailable + [phone] Allergies Active Allergy Reactions Criticality Noted Date Comments Penicillin G Hives 09/25/2016 Medications Multiple Vitamins-Minera ls (MULTIVITAMIN PO) Take by mouth. Active Naproxen (NAPROSYN PO) Take by mouth as needed. Pt does not recall of the dosage Active losartan (COZAAR) 25 MG Tablet Take 25 mg by mouth daily. Active folic acid (FOLVITE) 1 MG Tablet Take 1 Tablet by mouth daily. 90 Tablet 3 10/27/2024 Active cetirizine (ZyrTEC) 10 MG Tablet Take 10 mg by mouth daily. 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 - [facility] [address] [place] [address] Tucker Franklin MD Medication Refill from Last 3 Months Immunizations Immunization Administration Dates Next Due Influenza Vaccine 02/17/2017,03/01/2016,02/29/20 16 Influenza Vaccine, Quadrivalent, PF 01/28,03/19/2020,02/21/2019, 016 Social History Tobacco Use Types Packs/Day Years Used Date Smoking Tobacco: Never Smokeless Tobacco: Never Tobacco Cessation:Counseling Given: Not Answered Alcohol Use Standard Drinks/Week Comments No 0 (1 standard drink = 0.6 oz pur e alcohol) Comments No Sex and Gender Information Value Date Recorded Sex Assigned at Not on file Legal Sex Female 11:54 AM CDT Gender Identity Not on file Sexual Orientation Not on file Last Filed Vital Signs Vital Sign Reading Time Taken Comments Blood Pressure 128/78 11/17/2024 10:27 AM CDT Pulse 99 11/17/2024 10:27 AM CDT Temperature 36.8 C (98.2 F) 11/17/2024 10:27 AM CDT Respiratory Rate 16 11/17/2024 10:27 AM CDT Oxygen Saturation 99% 11/17/2024 10:27 AM CDT Inhaled Oxygen Concentration - - Weight 90.3 kg (199 lb) 11/17/2024 10:27 AM CDT Height 149.9 cm (4' 11) 11/17/2024 10:27 AM CDT Body Mass Index 40.19 11/17/2024 10:27 AM CDT Plan of Treatment Upcoming Encounters Date Type Department Care Team (Late st Contact Info) Description 05/18/2025 10:30 AM CUSTOMER COMPLAINT CLERK Office Visit [facility] - Neurology [facility] [address] [place] [address] Shasha Quintero APRN, [address] [place] [address] Health Maintenance Due Date Last Done Comments Hepatitis C Virus (HCV) Screening 1996 Pap Smear 2017 Influenza Immunization (#1) 2025 10/0 09/2023, 03/04/2023, 02/27/2022, Additional history exists Respiratory Syncytial Virus (RSV) Immunization (Adult) (1 - 1-dose 75+ series) 2071 Hepatitis B Immunization Completed 997, 1996, 1996 Pneumococcal Immunization Combined Aged Out 11/06/1999 No longer eligible based on patient's age to complete this topic DTaP/Tdap/Td Immunization Discontinued 2007, 06/16/2001, 09/27/1997, Additional history exists TdaP Immunization Completed 02/02/2008 Human Papillomavirus (HPV) Immunization Completed 08/22/2008, 04/07/2008, 02/02/2008 Meningococcal Immunization (ACWY) Completed 04/20/2013, 02/02/2008 SARS-COV-2 Immunization Completed 04/01/20 24, 06/03/2023, 04/03/2021, Additional history exists Rotavirus Immunization Aged Out No lo nger eligible based on patient's age to complete this topic Insurance MEDICAID [place] MEDICARE C [employer] Care Teams Spring Coiling Machine Setter Relationship Specialty [place] [address] [place] [address] PCP - General Family Medicine 05/31/18 Tucker Franklin MD [address] [place] [address] Consulting Physician Neurology 09/02/22 Shasha Quintero APRN, [address] [place] [address] Nurse Practitioner Advanced Practice Nurse 11/17/24
--- OUTSIDE RECORDS SUMMARY | 2025-02-28 09:36 | XMS_ITS | Encounter Summary ---
Author Organization [facility] Address [address] [place] [address] Phone Care Team Providers Care Gravedigger Name Role Phone Kirby Villegas MD Primary Care Provider Tucker Franklin MD Unavailable Shasha Quintero APRN, BEEF CATTLE FARM WORKER Unavailable [phone] Reason for Visit * Reason Comments Medication Refill Encounter Details Date Type Department Care Team (Late Contact Info) Description 07/[facility]/[address] [facility] [address] [place] [address] Tucker Franklin MD [address] [place] [phone] Medication Refill Social History Tobacco Use Types [...] (Late Contact Info) Description 05/18/2025 10:30 AM ABRADING MACHINE TENDER Office Visit [facility] [address] [place] [phone] Shasha Quintero APRN, BEEF CATTLE FARM WORKER [address] [place] [address] documented as of this encounter Visit Diagnoses Not on filedocumented in this encounter Additional Health Concerns Infection Onset Date Last Indicated Resolved Time COVID - 19 03/08/2022 03/08/2022 03/18/2022 12:1 6 AM CDT documented as of this encounter Care Teams Gravedigger Relationship Specialty Start [place] [address] [place] [address] PCP - General Family Medicine 05/31/18 Tucker Franklin MD [address] [place] [address] Consulting Physician Neurology 09/02/22 Shasha Quintero APRN, BEEF CATTLE FARM WORKER [address] [place] [address] Nurse Practitioner Advanced Practice Nurse 11/17/24 documented as of this encounter
[2025-02-28 09:49] VITALS: BP 123/83; PULSE 93; RESP 18; TEMP 36.5; O2SAT 100
[2025-02-28 09:57] LABS: EDSTREPNEGPOS1 Negative (Negative)
--- NOTE | 2025-02-28 10:22 | ED_ITS ---
HPI - URI/Sore Throat General Chief Complaint: Upper Respiratory Infection Stated Complaint: sore throat/runny nose Time Seen by Provider: 02/28/25 10:15 Source: patient and RN notes reviewed Mode of arrival: ambulatory Limitations: no limitations History of Present Illness HPI Narrative: 29-year-old female presents [facility] complaining of upper respiratory symptoms for approximately 3 days. Patient reports congestion, sinus pressure, runny nose, sore throat, and cough. Patient denies any fevers, body aches, chills, earache, nausea, vomiting, chest pain, shortness of breath, or any other symptoms. Patient has been taken antihistamines with some relief. Related Data Home Medications ?Medication ?Instructions ?Recorded ?Confirmed ?Last Taken ?Type drospirenone (contraceptive) 4 mg 4 mg PO DAILY 02/28/25 Unknown History (28) tablet (Slynd) folic acid 1 mg tablet 1 mg PO DAILY 10/19/2202/28 Unknown History lamotrigine 150 mg tablet 300 mg PO BID 10/19/2202/28 Unknown History omeprazole 40 mg capsule,delayed 40 mg PO DAILY 02/28/25 Unknown History release losartan 25 mg tablet mg 02/28/25 Unknown History Allergies Allergy/AdvReac Type Severity Reaction Status Date / Time Penicillins AdvReac Mild Hives Verified 02/28/25 09:42 Review of Systems Review of Systems: CONSTITUTIONAL: Denies fever, chills, body aches, or sweats. EYES: Denies visual changes, redness, or discharge. ENT: Positive for rhinorrhea, congestion, sore throat, sinus pressure. Negative for otalgia. CARDIOVASCULAR: Denies chest pain, palpitations, or edema. RESPIRATORY: Positive for cough. Negative for dyspnea or wheezing. GASTROINTESTINAL: Denies abdominal pain, nausea, vomiting, or diarrhea. GENITOURINARY: Denies dysuria or hematuria. SKIN: Denies rash or itching. MUSCULOSKELETAL: Denies back pain, joint pain, or myalgia. NEUROLOGIC: Denies headache, numbness, or weakness. PSYCHIATRIC: Denies anxiety or depression. All other systems reviewed are negative, except as documented in HPI. [facility] Past Medical History Medical History Seizure Surgical History Surgical History History of placement of ear tubes Comments At the time of my signature, I reviewed and agree with the nursing past medical, surgical, social, and family history. There is no relevant family history pertinent to the patient complaint. Exam Narrative: GENERAL: This is a well-nourished, well-developed adult, in no apparent distress. They are non ill-appearing, nontoxic appearing. HEAD: normocephalic, atraumatic. EYES: Sclera clear/white. Vision is grossly intact. Conjunctiva normal bilaterally. Extraocular movements intact. EARS: External ears normal, auditory canals clear and without drainage, left TM without erythema or perforation. Right TM erythematous bulging, with sup puration and scarring. No perforation. Hearing grossly intact. NOSE: External nose normal with no obvious nasal discharge, nasal turbinates erythematous, no rhinorrhea. THROAT: Mucous membranes moist, posterior pharynx erythematous without exudate. Uvula is midline. Postnasal drip present. NECK: Neck supple, non-tender without lymphadenopathy, masses or thyromegaly. CARDIOVASCULAR: Regular rate and rhythm without murmurs, gallops, or rubs. RESPIRATORY: Clear to auscultation. Breath sounds equal bilaterally. No wheezes, rales, or rhonchi. SKIN: warm, Dry, intact with no suspicious lesions or rash, good texture and turgor. NEURO: awake, alert, and oriented to person, place and time. There were no obvious focal neurologic abnormalities. EXTREMITIES: No joint tenderness, effusion, or edema noted. BACK: Nontender without deformity. Course Course Emergency Course: Portions of this record may have been created with voice recognition software Level of Care: Express Care Visit Vital Signs Vital signs: Vital Signs Temperature 97.7 F 02/28/25 09:49 Pulse Rate 93 02/28/25 09:49 Respiratory Rate 18 02/28/25 09:49 Blood Pressure 123/83 02/28/25 09:49 Pulse Oximetry 100 02/28/25 09:49 Oxygen Delivery Room Air 02/28/25 09:49 Temperature 97.7 F 02/28/25 09:49 Pulse Rate 93 02/28/25 09:49 Respiratory Rate 18 02/28/25 09:49 Blood Pressure 123/83 02/28/25 09:49 Pulse Oximetry 100 02/28/25 09:49 Oxygen Delivery Room Air 02/28/25 09:49 MDM - URI/Sore Throat MDM Narrative Medical decision making narrative: Rapid strep negative. Throat culture pending. Symptoms likely viral in etiology. Patient's right TM appears infected however patient denies any pain. Patient has history of chronic ear infections and chronic ear problems due to it. Will go ahead and treat with cefdinir given exam findings. Patient has allergy to penicillins. Discussed physical exam findings. Advised supportive measures and signs/symptoms to go to the ER. Pt is appropriate for outpt treatme nt and f/u. Differential Diagnosis Differential diagnosis: Likely upper respiratory infection, otitis media, viral infection and pharyngitis Lab Data Attestation: I reviewed the patient's lab results. Labs: Lab Results 02/28/25 Range/Units 09:55 POC Grp A Strep Screen Negative (Negative) Discharge Plan Discharge Clinical Impression: Otitis media Qualifiers: Otitis media type: suppurative Chronicity: acute Laterality: right Recurrence: non-recurrent Spontaneous tympanic membrane rupture: without spontaneous rupture Qualified Code(s): H66.001 - Acute suppurative otitis media without spontaneous rupture of ear drum, right ear Upper respiratory infection Qualifiers: URI type: unspecified viral URI Qualified Code(s): J06.9 - Acute upper respiratory infection, unspecified Patient Disposition: Home Condition: Stable Instructions: Antibiotic Form, Ear Infection (ED), Upper Respiratory Infection (ED) Additional Instructions: Your rapid strep swab was negative today at [facility]. You will be notified in a few days if the culture comes back positive for strep. Your symptoms are likely due to a viral illness, which is not treated with antibiotics. Viral symptoms can be present for up to 10-14 days. Also appears You may have an ear infection to the right ear. Take the antibiotics as directed. Take Tylenol or ibuprofen for fever or pain. Follow instructions on the bottle Rest and stay hydrated. Follow up with your PCP in 3-5 days if symptoms are not improving. Go to the ER immediately if you developed difficulty breathing or swallowing Patient Language: Nepali Prescriptions: New cefdinir 300 mg capsule 600 mg PO DAILY 5 Days Qty: 10 0RF No Action losartan 25 mg tablet lamotrigine 150 mg tablet 300 mg PO BID omeprazole 40 mg capsule,delayed release(/EC) 40 mg PO DAILY folic acid 1 mg tablet 1 mg PO DAILY Slynd 4 mg (28) tablet 4 mg PO DAILY Follow-up/Referrals: Nelly,Kirby Stevenson MD [Primary Care Provider] Time of Disposition: 10:21
== END 2025-02-28 10:23 | disposition home or self-care (01) ==
PROVIDERS: PCP Family Medicine
DX: H66.001 Acute suppurative otitis media without spontaneous rupture of ear drum, right ear (principal); J06.9 Acute upper respiratory infection, unspecified; G40.909 Epilepsy, unspecified, not intractable, without status epilepticus
CPT/HCPCS: 87081; 87880; 99213; G0463